=== PATIENT | male | born 1995 | race Asian ===

== ENCOUNTER → 2023-07-09 13:31 | Outpatient (CLI) | payer OTHER, SELFPAY ==
--- NOTE | 2023-07-09 | DI.US.S_ITS ---
ULTRASOUND OF RIGHT BREAST: 07/09/2023 CLINICAL: Palpable right breast lump and itchy retroareola. Comparison is made to exam dated: 07/09/2023 mammogram - [facility]. Color flow ultrasound of the right breast was performed on the areas of interest. Xie scale images of the real-time examination were reviewed. There is gynecomastia in the right breast that correlates with palpable abnormality. IMPRESSION: BENIGN There is no sonographic evidence of malignancy. However, the patient describes pruritis at the right nipple. Paget's disease cannot be excluded by imaging, and surgical consult is recommended to further charaterize the findings. This exam was interpreted at Station ID: [id number]. Electronically Signed By: Jennifer [email or web address]/:07/10/2023 14:15:46 Entry: - 07/10/2023 14:17:57 letter sent: Clinical Evaluation Ultrasound BI-RADS: 2 Benign
--- NOTE | 2023-07-09 | DI.MG.S_ITS ---
MALE BILATERAL DIGITAL DIAGNOSTIC MAMMOGRAM 3D/2D: 07/09/2023 CLINICAL: Palpable right breast lump and itchy retroareola. No prior exams were available for comparison. There is gynecomastia in the right breast that correlates with palpable abnormality. No significant masses, calcifications, or other findings are seen in either breast. IMPRESSION: INCOMPLETE: NEEDS ADDITIONAL IMAGING EVALUATION Right breast gynecomastia. A targeted ultrasound of the right breast is recommended to evaluate the pruritic nipple and will be performed immediately following this exam. This exam was interpreted at Station ID: [id number]. NOTE: For mammograms, a report in lay terms will be sent to the patient. Approximately 15% of breast malignancies will not be visualized mammographically. In the management of a palpable breast mass, a negative mammogram must not discourage biopsy of a clinically suspicious lesion. Electronically Signed By: Jennifer Ramírez M.D. lk/:07/09/2023 14:16:43 ACR BI-RADS Category 0: Incomplete [id number]
== END ==
PROVIDERS: PCP Internal Medicine; Referring Provider Physician Assistant; Visit Provider Physician Assistant
DX: N63.0 Unspecified lump in unspecified breast (principal); N62 Hypertrophy of breast; L29.8 Other pruritus
CPT/HCPCS: 76642; 77066; G0279